=== PATIENT | female | born 1990 | race Caucasian/White ===

== ENCOUNTER → 2016-12-24 | Outpatient (CLI) | payer MEDICAID ==
[~2016-12-24] MED LIST: ALBU6.7H INH; CEPH500C PO
[2016-12-24 11:54] LABS: AUTOMATED NEUTROPHIL # 5.9 TH/MM3 (1.8-7.7); BASOPHIL % 0.4 % (0.0-2.0); EOSINOPHIL # 0.1 TH/MM3 (0-0.4); EOSINOPHIL % 1.6 % (0.0-4.0); HEMATOCRIT 35.6 % (35.0-46.0); HEMO FLAGS DIFF FINAL; LYMPH % 24.1 % (9.0-44.0); LYMPHOCYTE # 2.1 TH/MM3 (1.0-4.8); MEAN CELL VOLUME 82.4 FL (80.0-100.0); MEAN CORPUSCULAR HEMOGLOBIN 26.9 PG (27.0-34.0); MEAN CORPUSCULAR HGB CONC 32.7 % (32.0-36.0); MONO % 5.8 % (0.0-8.0); NEUT % 68.1 % (16.0-70.0); PLATELET COUNT 315 TH/MM3 (150-450); RED BLOOD COUNT 4.31 MIL/MM3 (4.00-5.30); RED CELL DISTRIBUTION WIDTH 16.7 % (11.6-17.2); WHITE BLOOD COUNT 8.7 TH/MM3 (4.0-11.0)
[2016-12-24 12:19] LABS: ALT (GPT) 21 U/L (10-53); ANION GAP 6 MEQ/L (5-15); AST (GOT) 17 U/L (15-37); BICARBONATE 27.8 MEQ/L (21.0-32.0); BLOOD UREA NITROGEN 7 MG/DL (7-18); CHLORIDE 108 MEQ/L (98-107); GLOMERULAR FILTRATION RATE 94 ML/MIN (>89); GLUCOSE,FASTING 74 MG/DL (74-99); POTASSIUM 3.8 MEQ/L (3.5-5.1); SODIUM (NA) 142 MEQ/L (136-145)
[2016-12-24 12:22] LABS: ALKALINE PHOSPHATASE 80 U/L (45-117); TOTAL BILIRUBIN ADULT 0.4 MG/DL (0.2-1.0)
[2016-12-24 12:24] LABS: BHCG SCREEN QUALITATIVE LESS THAN 1 MIU/ML (0-5)
--- NOTE | 2016-12-24 12:43 | MH ---
cc: SARAH LOMAS,NAHOMI NIX,DARIO CASTELLANOS DATE OF ADMISSION 12/24/2016 DATE OF 1990 REASON FOR ADMISSION Laparoscopic tubal ligation. HISTORY OF PRESENT ILLNESS The patient is a 26-year-old white female 8, para 3 who wants to proceed with surgical sterilization. She has tried IUD in the past and became and does not want to proceed with any further childbearing. Her declines vasectomy. Patient is aware of the limitations and complications of surgery and elects to proceed. PAST MEDICAL HISTORY 1. Mild asthma 2. Negative for heart, liver disease, hypertension, diabetes, or stroke. 3. Does have an issue with kidney stones. Has a nephrostomy tube in at present that is scheduled to be removed on December 24. MEDICATIONS None ALLERGIES Seafood and SULFA medications. OBSTETRICAL HISTORY Three vaginal deliveries. GYNECOLOGIC HISTORY No STD's or abnormal Pap smears. PAST SURGICAL HISTORY Nephrostomy tube FAMILY HISTORY Contributory SOCIAL HISTORY , has a good social support. No alcohol, tobacco or drugs of abuse. REVIEW OF SYSTEMS The review of systems as above. No chest pain, orthopnea, PND. No nausea, vomiting, fever, or chills, issues with back pain and hydronephrosis with stone pain with a nephrostomy tube. PHYSICAL EXAM On exam, she is afebrile, vital signs stable. Blood pressure is 120/70, height 5 foot, 7 inches, weight is 225, BMI is 35. GENERAL: Patient is alert and oriented in no acute distress. No sign of cognitive dysfunction or depression. HEENT: Within normal limits. NECK: Supple. No JVD. CHEST: Clear. HEART: Regular rate and rhythm. ABDOMEN: Soft and nontender. No hepatosplenomegaly. Does have some tenderness at the site of the nephrostomy tube as to be expected. PELVIC: Exam will be detailed under anesthesia. EXTREMITIES: Normal skin without rashes. NEUROLOGIC: Nonfocal. No DVT signs. ASSESSMENT Patient with multiparity desires sterilization, failure of reversible methods of control. Patient is aware of the risks, benefits and alternatives of the planned procedure including damage to surrounding organs, bleeding, and infection, failure rate of perhaps a size of 1 in 250, irreversibility of the procedure, infertility and other issues germane to the procedure. At this point, we will use DVT prophylaxis with sequential compression devices, antibiotic prophylaxis Ancef 2 grams. Anticipate outpatient procedure. Plan would be for salpingectomy if possible or tubal cauterization. MD EDOUARD Joseph/DONNA /12:26 PM /12:36 PM
[2016-12-24 13:00] LABS: BACTERIA, URINE OCC /hpf; BLOOD, URINE TRACE (NEG); COMMENT (UR) CULTURE INDICATED; CULTURE IF INDICATED CULTURE INDICATED; GLUCOSE,URINE NEG (NEG); KETONE, URINE NEG (NEG); MUCUS URINE FEW /lpf (OCC); NITRITE,URINE NEG (NEG); PH, URINE 7.5 (5.0-8.5); SQUAMOUS EPITHELIAL CELL URINE 10 /hpf (0-5); URINE COLOR YELLOW (YELLW/STRAW)
== END ==
LOC: CPRE 11:01
PROVIDERS: ATTEND Obstetrics & Gynecology Gynecology
DX: Z01.810 Encounter for preprocedural cardiovascular examination (principal); Z01.812 Encounter for preprocedural laboratory examination; R82.90 Unspecified abnormal findings in urine
CPT/HCPCS: 36415; 80053; 81001; 84703; 85025; 87086

== ENCOUNTER → 2016-12-28 | Day surgery (SDC) | payer MEDICAID ==
[~2016-12-28] VITALS: Ht 170.2 cm; Wt 103.1 kg
[~2016-12-28] MED LIST changes: +ACETAMINOPHEN 1000 MG/100 ML VIAL IV ONE; +APREPITANT 40 MG CAP ONE; -CEPH500C PO; +CHLORHEXIDINE GLUCONATE 2 % 1 PACK (2 CLOTHS) TOPICAL PRN; +DEXAMETHASONE SOD PHOS 4 MG/ML VIAL ONE; +DO NOT ADM ANY ANTICOAGULANT DRUGS PRN; +FAMOTIDINE 20 MG/2 ML VIAL ONE; +INSULIN HUMAN REGULAR 1,000 UNITS/10 ML VIAL SQ PRN; +KETOROLAC TROMETHAMINE 30 MG/ML (IVP) VIAL IV PUSH PRN; +KETOROLAC TROMETHAMINE 60 MG/2 ML (IM) VIAL IM ONE; +LACTATED RINGER'S 1000 ML IV PRN; +LIDOCAINE 1%/EPINEPHrine 1:100,000 SOLN 30 ML VIAL INFIL ONE; +METOPROLOL TARTRATE 25 MG TAB PO PRN; +MIDAZOLAM HCL 2 MG/2 ML VIAL ONE; +NEOSTIGMINE 3 MG/3 ML SYR IV ONE; +ONDANSETRON HCL 4 MG/2 ML VIAL IV PUSH ONE; +ONDANSETRON HCL 4 MG/2 ML VIAL IV PUSH PRN; +PILL SPLITTER OTHER PRN; +POVIDONE IODINE 5% (ANTISEPSIS KIT) 4 APPLICATIONS EACH NARE PRN; +PROPOFOL 200 MG/20 ML AMP IV ONE; +SODIUM CHLORID 0.9% 500 ML IV PRN; +ceFAZolin 2 GM PREMIX 50 ML IV SCH; +ceFAZolin 2 GM PREMIX 50 ML ONE; +fentaNYL CITRATE 250 MCG/5 ML AMP ONE; +traMADol HCL 50 MG TAB PO PRN
[2016-12-28 10:49] VITALS: BP 114/66; PULSE 69; RESP 16; TEMP 98.9; O2SAT 99
[2016-12-28 17:01] VITALS: BP 108/54; PULSE 56; RESP 16; TEMP 98; O2SAT 97
--- NOTE | 2016-12-29 12:30 | MP ---
cc: JOSHUA LOMAS MD, LAURA C. CHAPPIUS,DARIO SORIA,BOZENA Hanson MD DATE OF SURGERY 12/28/2016 PREOPERATIVE DIAGNOSES Multiparity desires sterilization. POSTOPERATIVE DIAGNOSES Multiparity desires sterilization, adhesions of the left tube to the abdominal wall and bowel. PROCEDURE 1. Laparoscopic lysis of adhesions. 2. Bilateral salpingectomy SURGEON Joshua Lomas MD ANESTHESIA General endotracheal with OG tube BLOOD LOSS Less than 5 cc URINE OUTPUT 100 cc [facility] [place] staff x1 URINE OUTPUT 100 cc FLUIDS 1000 cc crystalloid FINDINGS External genitalia normal. POP-Q score: Aa is -2, Ap is -2. Point C is -8. Total vaginal length is 10. Genital hiatus is 6. Perineal body is 4. Uterus is retroverted, small and boggy. Tubes are somewhat hydropic. There are adhesions of the omentum and epiploica on the left side. The ovaries themselves are normal. Upper abdomen normal. SPECIMENS Right left tube COMPLICATIONS None DISPOSITION Recovery in stable needle, sponge count correct. Drains Hunter catheter antibiotic prophylaxis Ancef 2 grams DVT prophylaxis with sequential compression device. Time-out procedure per protocol. SUMMARY OF INDICATION FOR PROCEDURE Patient with a desire for sterilization. PROCEDURE The patient was taken to the operating theater, identified, prepped and draped in a fashion appropriate for the planned procedure. She was in the dorsolithotomy position with careful attention paid to placement of legs in the stirrups to avoid undue stress to sensitive neurovascular structures. Above findings noted. Neurovascular integrity documented. A Hunter catheter was placed. Umbilicus was infiltrated with epinephrine/lidocaine solution. The small incision was made in the umbilicus. A 5 mm scope was placed under direct visualization. The above findings were noted. Trendelenburg position instituted. An 8 mm trocar was placed suprapubically using a needle as a guide with epinephrine lidocaine for infiltration. On the left side, a 5-mm incision was made and a 5-mm scope was placed under direct visualization. Above findings noted. Adhesions were taken down with Harmonic energy on the left without complication. The tube on the left was moderately adhered. This was taken down with Harmonic energy across the mesosalpinx with good anatomic hemostatic result. The ureter was clear. The utero-ovarian ligament was uninjured as was the IP ligament. On the right side, the ureter was identified. This tube had severe adhesions, but was somewhat hydropic and red. Each tube was taken down with Harmonic energy across the mesosalpinx and amputated at the cornea with good anatomic hemostatic result. The pelvis was inspected with and without gas pressure. Retro view of the umbilical port was performed by repositioning the camera to another trocar. At this point, hemostatic powder was used for reassurance. The procedure was concluded. The patient reversed from anesthesia after the incisions were closed with 4-0 Monocryl and Dermabond. The patient tolerated the procedure well, was transferred to the Recovery Room in stable condition. MD EDOUARD Joseph/DONNA /3:30 PM /12:16 PM
== END | disposition home or self-care (01) ==
LOC: HSDC 10:04
PROVIDERS: ATTEND Obstetrics & Gynecology Gynecology
DX: Z30.2 Encounter for sterilization (principal); N73.6 Female pelvic peritoneal adhesions (postinfective)
CPT/HCPCS: 00840; 58661; 88302; J0131; J0690; J1100; J1885; J2250; J2405; J2710; J3010; J7120; J8501